=== PATIENT | female | born 1980 | race Two or more races ===

== ENCOUNTER 2016-04-29 19:27 | Emergency (ER) | payer SELFPAY ==
[~2016-04-29] VITALS: Ht 170.2 cm; Wt 129.3 kg
[2016-04-29 19:33] VITALS: BP 161/74
[2016-04-29] MEDS ORDERED: IBUPROFEN 600 MG TAB PO ONE (20:15)
[2016-04-29] MEDS ORDERED: CYCLOBENZAPRINE HCL 10 MG TAB PO ONE (20:15)
== END 2016-04-29 20:19 | disposition home or self-care (01) ==
LOC: ER 19:34
DX: M79.1 Myalgia (principal); W01.0XXA Fall on same level from slipping, tripping and stumbling without subsequent striking against object, initial encounter; Y93.89 Activity, other specified; Y92.89 Other specified places as the place of occurrence of the external cause; Y99.8 Other external cause status

== ENCOUNTER 2018-03-31 15:48 | Emergency (ER) | payer MEDICAID ==
[2018-03-31 16:13] VITALS: BP 137/71
== END 2018-03-31 16:55 | disposition home or self-care (01) ==
LOC: ER 15:51
DX: J03.90 Acute tonsillitis, unspecified (principal)